=== PATIENT | male | born 2005 | race African-American/Black ===

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

== ENCOUNTER 2025-01-16 21:54 | Emergency (ER) | payer MEDICAID ==
[~2025-01-16] VITALS: Ht 182.9 cm; Wt 69.5 kg
[2025-01-16 23:50] VITALS: BP 124/79; PULSE 78; RESP 18; TEMP 98.3; O2SAT 98
[2025-01-16] MEDS ORDERED: FLUC200T PO (23:55)
[2025-01-16] MEDS ORDERED: ISOS10TA2 PO (23:55)
--- NOTE | 2025-01-16 23:55 | ED.PDOC ---
Eye-HPI HPI Comments 19 year old male presents to ER for medication refill. Patient with PMH history of achalasia reports that he ran out of his isosorbide dinitrate 10 mg that he takes TID for achalasia 3 days ago and is requesting a refill on this medication. Patient states he also has history of recurrent candidal esophagitis and is requesting a refill on fluconazole that he takes as needed for candidal esophagitis. Patient presents to ER ambulatory on arrival, in no distress and states the only symptom he is currently having is "a dry mouth". Notes he does have an appointment with his economics professor this month on January 24. Denies dysphagia, chest pain, n/v or any further symptoms/complaints Chief Complaint: Sore Throat Time Seen by MD: 22:27 Primary Care Provider: CITLALLI Aguilar Notes: Nurses Notes, Medications, Allergies Allergies: Coded Allergies: No Known Drug Allergy (Verified Allergy, Unknown, 12/25/22) Uncoded Allergies: GUILLE (Allergy, Unknown, 09/27/22) Home Meds Active Scripts Fluconazole (Diflucan) 200 Mg Tab, 1 TAB PO DAILY for 10 Days, #10 TAB 0 Refills Prov:JUSTEN MICHELLE 01/16/25 Isosorbide Dinitrate (Isosorbide Dinitrate) 10 Mg Tab, 10 MG PO TID, #30 TAB 0 Refills Prov:JUSTEN MICHELLE 01/16/25 Hydroxyzine Pamoate (Vistaril) 50 Mg Cap, 1 CAP PO QHSP PRN, #20 CAP 2 Refills Prov:MINERVA LAMB 09/27/22 Albuterol Sulfate (Albuterol Sulfate Hfa) 108 Mcg/Act Aer, 108 MCG IN TID PRN, #90 AER Prov:MINERVA LAMB 09/27/22 Methylprednisolone (Medrol Dosepak) 4 Mg Reji, 4 MG PO UD, #21 TAB UAD Prov:MINERVA LAMB 09/26/22 Information Source: Patient Mode of Arrival: Ambulatory Past Medical History PAST MEDICAL HISTORY: Anxiety Past Medical History (Other): Achalasia Esophageal candidiasis Surgical History (Other): Esophageal balloon dilation Family History Family History: Unknown Social History Smoker: Non-Smoker Alcohol: Denies ETOH Use Drugs: Denies Drug Use Lives In: Home Constitutional: denies: chills, diaphoresis, fatigue, fever, malaise, sweats, weakness, others EENTM: reports: others (As stated in HPI) Respiratory: denies: cough, hemoptysis, orthopnea, SOB at rest, shortness of breath, SOB with excertion, stridor, wheezing, others Cardiovascular: denies: chest pain, dizzy spells, diaphoresis, Dyspnea on exertion, edema, irregular heart beat, left arm pain, lightheadedness, palpitations, PND, syncope, others Gastrointestinal: denies: abdomen distended, abdominal pain, blood streaked bowels, constipated, diarrhea, dysphagia, difficulty swallowing, hematemesis, melena, nausea, poor appetite, poor fluid intake, rectal bleeding, rectal pain, vomiting, others Genitourinary: denies: burning, dysuria, flank pain, frequency, hematuria, incontinence, penile discharge, penile sore, pain, testicle pain, testicle swelling, urgency, others Neurological: denies: dizziness, fainting, headache, left sided numbness, left sided weakness, numbness, paresthesia, pre-existing deficit, right sided numbness, right sided weakness, seizure, speech problems, tingling, tremors, weakness, others Musculoskeletal: denies: back pain, gout, joint pain, joint swelling, muscle pain, muscle stiffness, neck pain, others Integumetry: denies: bruises, change in color, change in hair/nails, dryness, laceration, lesions, lumps, rash, wounds, others Allergic/Immunocompromised: denies: Difficulty Healing, Frequent Infections, Hives, Itching, others Hematologic/Lymphatic: denies: anemia, blood clots, easy bleeding, easy bruising, swollen glands, others Endocrine: denies: excessive hunger, excessive sweating, excessive thirst, excessive urination, flushing, intolerance to cold, intolerance to heat, u nexplained weight gain, unexplained weight loss, others Psychiatric: denies: anxiety, bipolar disorder, depression, hopeless, panic disorder, schizophrenia, sleepless, suicidal, others Physical Exam General Appearance: No Apparent Distress HEENT: Normal ENT Inspection, PERRL/EOMI, Pharynx Normal, TMs Normal Neck: Full Range of Motion, Non-Tender, Normal Respiratory: Chest Non-Tender, Lungs Clear, No Accessory Muscle Use, No Respiratory Distress, Normal Breath Sounds Cardiovascular: No Murmur, No Gallop, Regular Rate/Rhythm Breast Exam: Deferred Gastrointestinal: Non Tender, No Pulsatile Mass, Soft Genitalia: Deferred Pelvic: Deferred Rectal: Deferred Extremities: Normal capillary refill, Normal range of motion Neurologic: Alert, automatic screwmaker II-XII nml as Tested, No Motor Deficits, Normal Affect, Normal Mood, No Sensory Deficits Cerebellar Function: Normal Reflexes: Normal Skin: Dry, Normal Color, Warm Lymphatic: No Adenopathy Was a procedure done? Was a procedure done?: No Sedation Sedation?: No EENT DIFF Eye: N/A Other Differential Diagnosis Esophageal spasm, reflux esophagitis, pseudoachalasia X-Ray, Labs, Meds, VS Vital Signs Date Time Temp Pulse Resp B/P (MAP) Pulse Ox O2 Delivery O2 Flow Rate FiO2 01/16/25 22:10 98.3 78 18 124/79 (94) 98 98.3 Patient tolerating p.o. intake well and in no distress during ER visit/prior to discharge Advised to follow up with PCP and economics professor in 1-2 days Patient verbalized understanding and agreeable with current plan of care Advised to return to ER immediately if symptoms worsen Time of 1ST Reevaluation: 23:12 Reevaluation 1ST: N/A Patient Education/Counseling: Diagnosis, Treatment, Prognosis, Need For Follow Up Family Education/Counseling: No Family Present Departure 1 Departure Time of Disposition: 23:32 Impression: Primary Impression: Achalasia Additional Impressions: History of esophagitis Medication refill Disposition: HOME / SELF CARE / HOMELESS Condition: Stable e-Prescriptions Fluconazole (Diflucan) 200 Mg Tab 1 TAB PO DAILY for 10 Days, #10 TAB 0 Refills Prov: JUSTEN MICHELLE 01/16/25 Isosorbide Dinitrate (Isosorbide Dinitrate) 10 Mg Tab 10 MG PO TID, #30 TAB 0 Refills Prov: JUSTEN MICHELLE 01/16/25 Discharged With: Self Critical Care Note Critical Care Time?: No Stability Stability form required: No Heart Score Heart Score: Heart Score Response (Comments) Value History N/A 0 EKG N/A 0 Age N/A 0 Risk Factors N/A 0 Troponin N/A 0 Total 0 JUSTEN MICHELLE Jan 16, 2025 23:55
== END 2025-01-16 23:59 | disposition home or self-care (01) ==
LOC: ER 21:54
DX: K22.0 Achalasia of cardia (principal); F41.9 Anxiety disorder, unspecified; Z76.0 Encounter for issue of repeat prescription

== ENCOUNTER 2025-01-18 13:21 | Emergency (ER) | payer MEDICAID ==
[~2025-01-18] VITALS: Ht 182.9 cm; Wt 68.6 kg
[~2025-01-18 13:21] MED LIST changes: +FLUC200T PO; +ISOS10TA2 PO
--- NOTE | 2025-01-18 13:59 | ED.PDOC ---
SOB-HPI HPI Comments HPI: 19-year-old male presents with a chief complaint of SOB and Chest Pain. Patient mentions that he called his primary care doctors office and expressed concerns over his symptoms. Patient's PCP referred him to the ER due to his PMHx of PE x 1 year ago. Patient also reports that he has achalasia and takes medication for it. Patient mentions that currently his chest pain has subsided, but wanted to be evaluated just in case. PMHx: Anxiety, PE, distal esophageal Achalasia PSHx: None Allergies: Amy, NKDA HPI: Poor Historian. wagner: cp/sob, history of PE. Symptoms have resolved prior to my evaluation. Duration started this morning. His PCP's sent him here to make sure. REVIEW OF SYSTEMS: CONSTITUTIONAL: Denies acute: fever, diaphoresis, chills, generalized weakness. HEAD: Denies acute: headache, photophobia Eyes: Denies acute: Double vision, vision loss, eye pain, eye discharge. EARS: Denies acute: tinnitus, hearing loss, ear discharge, ear pain, THROAT: Denies acute: sore throat, swelling, difficulty swallowing , pain with swallowing, change in voice. NECK: Denies acute: neck pain, neck swelling, stiff neck. HEART: Denies acute : palpitations, LUNGS: Denies acute: wheezing, cough, hemoptysis ABDOMEN: Denies acute: abdominal pain, Nausea, Vomiting, diarrhea, melena , hematemesis, hematochezia SKIN: Denies acute: rash, redness, lesions, itchiness. EXTREMITIES: Denies acute: calf pain, numbness, tingling, weakness, denies pain in extremity. Denies acute: Low back pain. Neuro: Denies acute: focal neurological deficit, motor or sensory focal neurological deficit, tremors, seizure like activity, confusion, dizziness, change in mental status, loss of bowel or bladder function, cauda equina like symptoms. : Denies acute: dysuria, hematuria, flank pain, increase in urinary frequency. PSYCH: Denies acute: hallucination, suicidal ideation, homicidal ideation. PHYSICAL EXAM: General: ---no-----acute distress, awake and alert. Head: normocephalic, atraumatic. Neck: supple, trachea is midline, no swelling. Throat: Normal phonation. Eyes:, no erythema, no purulent discharge, no proptosis, no icterus. Heart: regular rate, regular rhythm, no significant murmur appreciated. Lungs: no apparent respiratory distress, Able to speak in full sentences. No wheezing, no rhonchi, no crackles. No stridors Clear to auscultation bilaterally. Abdomen: non tender to palpation, non distended, soft, no guarding, no rebound, + bowel sounds. Neuro: Awake, Alert, oriented to name, self, situation, follows commands GCS=15. Speech is normal. Skin: no petechia, no purpura, no cyanosis, non-pale, not jaundice. Lower extremities: --no - Pitting edema no deformity, no focal swelling, no calf TTP. Makes eye contact. moves all four extremities. Face: no apparent facial droop. Ambulating in the ED independently. No nuchal rigidity, Kernig's sign, Brudzinski's sign, no meningeal signs. ED COURSE: Chief Complaint: Shortness of Breath Time Seen by MD: 13:25 Primary Care Provider: OOA Reviewed notes: Medications, Allergies Information Source: Patient Mode of Arrival: Ambulatory Past Medical History PAST MEDICAL HISTORY: Anxiety Past Medical History (Other): PE Family History Family History: Unknown Social History Smoker: Non-Smoker Alcohol: Denies ETOH Use Drugs: Denies Drug Use Lives In: Home Was a procedure done? Was a procedure done?: No Differential Dx Differential Diagnosis: Other (Ddx include but not limitied to gastritis, musculoskeletal pain, radiculopathy, atypical chest pain, dissection, aneurysm, ACS, unstable angina, hiatal hernia, GERD, anxiety, costochondritis, PE, pneumothroax, neoplasm, cardiac ischemia, drug abuse, anemia.) X-Ray, Labs, Meds, VS Vital Signs Date Time Temp Pulse Resp B/P (MAP) Pulse Ox O2 Delivery O2 Flow Rate FiO2 01/18/25 16:00 98.2 88 20 112/77 (89) 98 98.2 01/18/25 13:42 16 97 Room Air* 0 21 01/18/25 13:35 89 01/18/25 13:28 97.6 81 16 119/71 (87) 97 97.6 Lab Test 01/18/25 16:52 01/18/25 14:50 01/18/25 14:01 Range/Units Troponin I High Sensitivity 7 4 6 </=54 ng/L White Blood Count 6.3 4.4-10.8 10^3/uL Red Blood Count 5.44 4.5-5.90 10^6/uL Hemoglobin 16.9 13.5-17.5 g/dL Hematocrit 49.1 41.0-53.0 % Mean Corpuscular Volume 90.2 80.0-100.0 fL Mean Corpuscular Hemoglobin 31.0 28.0-32.0 pg Mean Corpuscular Hemoglobin Concent 34.4 32.0-36.0 g/dL Red Cell Distribution Width 12.9 11.8-14.3 % Platelet Count 188 140-450 10^3/uL Mean Platelet Volume 8.3 6.9-10.8 fL Neutrophils (%) (Auto) 60.4 37.0-80.0 % Lymphocytes (%) (Auto) 29.4 10.0-50.0 % Monocytes (%) (Auto) 7.9 0.0-12.0 % Eosinophils (%) (Auto) 1.7 0.0-7.0 % Basophils (%) (Auto) 0.6 0.0-2.0 % Neutrophils # (Auto) 3.8 1.6-8.6 10 ^3/uL Lymphocytes # (Auto) 1.9 0.4-5.4 10 ^3/uL Monocytes # (Auto) 0.5 0-1.3 10 ^3/uL Eosinophils # (Auto) 0.1 0-0.8 10 ^3/uL Basophils # (Auto) 0 0-0.2 10 ^3/uL Nucleated Red Blood Cells 0.2 % D-Dimer, Quantitative < 0.19 0.0-0.49 mg/L FEU Sodium Level 142 136-145 mmol/L Potassium Level 4.0 3.5-5.1 mmol/L Chloride Level 106 98-107 mmol/L Carbon Dioxide Level 28 20-31 mmol/L Anion Gap 8 5-15 Blood Urea Nitrogen 9 9-23 mg/dL Creatinine 0.93 0.700-1.30 mg/dL Glomerular Filtration Rate Calc 120 >90 mL/min BUN/Creatinine Ratio 9.7 L 10.0-20.0 Serum Glucose 108 H 74-106 mg/dL Calcium Level 10.6 H 8.7-10.4 mg/dL Total Bilirubin 0.4 0.2-1.0 mg/dL Aspartate Amino Transferase (AST) 15 13-40 U/L Alanine Aminotransferase (ALT) 17 7-40 U/L Alkaline Phosphatase 76 46-116 U/L B-Type Natriuretic Peptide 4.30 0-100 pg/mL Total Protein 7.5 5.7-8.2 g/dL Albumin 4.8 3.2-4.8 g/dL Time of 1ST Reevaluation: 13:58 Reevaluation 1ST: Unchanged Time of 2ND Reevaluation: 16:58 (I DISCUSSED WITH THE PATIENT THE LAB FINDINGS. NORMAL D-DIMER. NORMAL TROPONIN. NO TACHYCARDIA. SYMPTOMS HAVE ALREADY RESOLVED PRIOR TO MY EVALUATION. THE DISCUSSED WITH THE HIM CT SCAN IMAGING OF THE CHEST TO RULE OUT PE. HE UNDERSTANDS RADIATION RISKS. AT THIS TIME HE CHOOSES NOT TO OBTAIN A CT SCAN OF THE CHEST AND WILL FOLLOW UP WITH HIS PCP AND RETURN IF NEEDED. HE UNDESCENDED TO LIMITATION OF OUR WORKUP WITHOUT A CT SCAN OF THE CHEST.) Reevaluation 2ND: Improved Patient Education/Counseling: Diagnosis, Treatment Family Education/Counseling: No Family Present Comments Patient workup has been unremarkable. However patient left before he gets his chest x-ray. I discussed CT scan imaging with the patient. He declined any imaging studies at this time. Patient states his symptoms have resolved. He thinks he might have a URI. We called the patient when he got home and instructed him to return to the emergency department to get his chest x-ray at least. Patient has said that he is not coming back and he feels fine Patient presented with the above HPI.---chest pain/dyspnea---workup was initiated. patient was found with the above mentioned diagnosis. the following medications were ordered: please refer to order lists of meds and tests obtained by myself Dr. Arce. Patient ED course and VS have been stabilized. Patient has been reassessed in the ED and remained in a stable condition. Pertinent incidental findings were discussed with the patient and/or family. Patient/family voices understanding and is agreeable with plan. Patient has been observed in the ED adequate length of time to insure improvement/stability. Escalation of care considered: Consideration of escalation to observation or admission Patient has history of PE in the past was provoked when he was hospitalized and immobilized for at least a month on a feeding tube. He followed up with Hematology afterwards. He is not on any blood thinners at this time. D-dimer is normal Patient was DISCHARGED home in a stable condition. All the reports of any imaging studies that were ordered by myself were reviewed by myself. Departure 1 Departure Time of Disposition: 16:58 Impression: Primary Impression: Chest pain Disposition: 01 HOME / SELF CARE / HOMELESS Condition: Stable Additional Instructions: ADDITIONAL INSTRUCTIONS: YOU MUST FOLLOW-UP WITH YOUR PRIMARY CARE/FAMILY DOCTOR IN 1 TO 2 DAYS. IF YOU ARE UNABLE TO SEE YOUR PRIMARY CARE/FAMILY DOCTOR, PLEASE RETURN TO OUR EMERGENCY ROOM FOR RE-ASSESSMENT AND RE-EVALUATION IN 1 TO 2 DAYS. RETURN TO THE EMERGENCY ROOM HERE IN OUR FACILITY OR TO THE NEAREST ER [place] IF YOUR SYMPTOMS CHANGE OR WORSEN. CONSULTATIONS: YOU MUST FOLLOW-UP FOR CONSULTATION SOON POSSIBLE WITH: -PULMONOLOGY AND CARDIOLOGY IN 1-2 DAYS. PLEASE CALL FOR APPOINTMENT. YOU MUST CALL THE CONSULTANTS OFFICE YOURSELF TO MAKE AN APPOINTMENT. YOU MAY NEED TO ARRANGE THAT THROUGH YOUR INSURANCE AND/OR YOUR PRIMARY/FAMILY DOCTOR. IF YOU ARE UNABLE TO SEE THE ASSISTANT PROFESSOR OF DIETETICS IN 1 TO 2 DAYS, YOU MUST RETURN TO OUR EMERGENCY ROOM (OR ANY OTHER ER OF YOUR CHOICE) FOR RE-ASSESSMENT AND RE- EVALUATION. ADEQUATE FLUID HYDRATION. Discharged With: Self Critical Care Note Critical Care Time?: No Heart Score Heart Score: Heart Score Response (Comments) Value History Slightly Suspicious 0 EKG Normal 0 Age <45 0 Risk Factors 1 or 2 risk factors 1 Troponin Normal limit 0 Total 1 I personally scribed for LISA ARCE DO ([email or web address]) on 01/18/25 at 13:59. Electronically submitted by Adelfo Schmidt ([email or web address]). I personally scribed for LISA ARCE DO ([email or web address]) on 01/18/25 at 14:20. Electronically submitted by Adelfo Schmidt ([email or web address]). LISA ARCE DO Jan 18, 2025 13:59
[2025-01-18 14:22] LABS: Basophils # (auto) 0 10 ^3/uL (0-0.2); Basophils % (auto) 0.6 % (0.0-2.0); Eosinophils # (auto) 0.1 10 ^3/uL (0-0.8); Eosinophils % (auto) 1.7 % (0.0-7.0); Hematocrit 49.1 % (41.0-53.0); Hemoglobin 16.9 g/dL (13.5-17.5); Lymphocytes # (auto) 1.9 10 ^3/uL (0.4-5.4); Lymphocytes % (auto) 29.4 % (10.0-50.0); Mean Corpuscular Hgb Conc. 34.4 g/dL (32.0-36.0); Mean Corpuscular Volume 90.2 fL (80.0-100.0); Monocytes # (auto) 0.5 10 ^3/uL (0-1.3); Monocytes % (auto) 7.9 % (0.0-12.0); Neutrophils # (auto) 3.8 10 ^3/uL (1.6-8.6); Neutrophils % (auto) 60.4 % (37.0-80.0); Nucleated Red Blood Cells % 0.2 %; Platelet Count (auto) 188 10^3/uL (140-450); Red Blood Cells 5.44 10^6/uL (4.5-5.90); Red Cell Distribution Width 12.9 % (11.8-14.3); White Blood Cell 6.3 10^3/uL (4.4-10.8)
[2025-01-18 14:39] LABS: Alanine Aminotransferase 17 U/L (7-40); Alkaline Phosphatase 76 U/L (46-116); Anion Gap 8 (5-15); Aspartate Aminotransferase 15 U/L (13-40); BUN/Creatinine Ratio 9.7 (10.0-20.0); Bilirubin, Total 0.4 mg/dL (0.2-1.0); Blood Urea Nitrogen 9 mg/dL (9-23); Carbon Dioxide 28 mmol/L (20-31); Chloride 106 mmol/L (98-107); Sodium 142 mmol/L (136-145); Total Protein 7.5 g/dL (5.7-8.2)
[2025-01-18 14:42] LABS: Albumin 4.8 g/dL (3.2-4.8); Calcium 10.6 mg/dL (8.7-10.4); Glucose 108 mg/dL (74-106)
[2025-01-18 16:00] VITALS: BP 112/77; PULSE 88; RESP 20; TEMP 98.2; O2SAT 98
--- NOTE | 2025-01-23 13:04 | ECG ---
[facility] Test Date: 2025-01-18 Test Time: 13:35:00 Pat Name: SADA SHINE Department: ER Room: Gender: M Validation Consultant: RADU : 2005 Requested By: STORM BANDA Order Number: [id number] Reading MD: Quentin Rodriguez Measurements Intervals [place] Rate: 89 P: 95 AK: 143 QRS: 35 QRSD: 90 T: 10 QT: 349 QTc: 425 Interpretive Statements Sinus rhythm Borderline ST elevation, anterior leads Electronically Signed On 01-24-2025 17:24:51 PDT by Quentin Rodriguez Please click the below link to view image of tracing.
== END 2025-01-18 18:07 | disposition home or self-care (01) ==
LOC: ER 13:29
DX: R07.9 Chest pain, unspecified (principal); R06.02 Shortness of breath
CPT/HCPCS: 36415; 80053; 83880; 84484; 85025; 85379; 93005

== ENCOUNTER 2025-03-18 06:35 | Inpatient (IN) | payer MEDICAID ==
[~2025-03-18] VITALS: Ht 182.9 cm; Wt 65.2 kg
--- NOTE | 2025-03-18 07:46 | ED.PDOC ---
General HPI Comments 19 year old male presents to the ED with a chief complaint of hematuria onset 1 day. Patient states he has began experiencing hematuria, bilateral flank pain, nausea, vomiting,fevers for the past day. This morning, fever was 102 F, took Tylenol prior to ED arrival, upon ED arrival temperature was 100.3 F. Patient states he is immunocompromised, concerned for pyelonephritis, has experienced it in the past and states symptoms are similar. Denies chest pain, shortness of breath, diarrhea, headache, dizziness. No other symptoms or modifying factors present at this time. Chief Complaint: Urinary Time Seen by MD: 07:35 Primary Care Provider: MIKA Reviewed notes: Medications, Allergies Allergies: Coded Allergies: No Known Drug Allergy (Verified Allergy, Unknown, 12/25/22) Uncoded Allergies: GUILLE (Allergy, Unknown, 09/27/22) Home Meds Active Scripts Fluconazole (Diflucan) 200 Mg Tab, 1 TAB PO DAILY for 10 Days, #10 TAB 0 Refills Prov:JUSTEN MICHELLE 01/16/25 Isosorbide Dinitrate (Isosorbide Dinitrate) 10 Mg Tab, 10 MG PO TID, #30 TAB 0 Refills Prov:JUSTEN MICHELLE 01/16/25 Hydroxyzine Pamoate (Vistaril) 50 Mg Cap, 1 CAP PO QHSP PRN, #20 CAP 2 Refills Prov:MINERVA LAMB 09/27/22 Albuterol Sulfate (Albuterol Sulfate Hfa) 108 Mcg/Act Aer, 108 MCG IN TID PRN, #90 AER Prov:MINERVA LAMB 09/27/22 Methylprednisolone (Medrol Dosepak) 4 Mg Reji, 4 MG PO UD, #21 TAB UAD Prov:MINERVA LAMB 09/26/22 Information Source: Patient Mode of Arrival: Ambulatory Severity: Moderate Timing: Days Duration: Since onset Prehospital treatment: Other (tylenol) Onset: Spontaneous Symptoms: Hematuria History of: UTI Location: (R) Flank, (L)Flank Penile discharge: None Modifying factors: None associated signs and symptoms: Fever, Nausea, Vomiting, Flank Pain, Hematuria Past Medical History PAST MEDICAL HISTORY: Anxiety Surgical History: Denies all surgeries Family History Family History: Unknown Social History Smoker: Non-Smoker Alcohol: Denies ETOH Use Drugs: Denies Drug Use Lives In: Home Constitutional: reports: fever; denies: chills, diaphoresis, fatigue, malaise, sweats, weakness, others EENTM: denies: blurred vision, double vision, ear bleeding, ear discharge, ear drainage, ear pain, ear ringing, eye pain, eye redness, hearing loss, mouth pain, mouth swelling, nasal discharge, nose bleeding, nose congestion, nose pain, photophobia, tearing, throat pain, throat swelling, voice changes, others Respiratory: denies: cough, hemoptysis, orthopnea, SOB at rest, shortness of breath, SOB with excertion, stridor, wheezing, others Cardiovascular: denies: chest pain, dizzy spells, diaphoresis, Dyspnea on exertion, edema, irregular heart beat, left arm pain, lightheadedness, palpitations, PND, syncope, others Gastrointestinal: reports: nausea, vomiting; denies: abdomen distended, abdominal pain, blood streaked bowels, constipated, diarrhea, dysphagia, difficulty swallowing, hematemesis, melena, poor appetite, poor fluid intake, rectal bleeding, rectal pain, others Genitourinary: reports: flank pain, hematuria; denies: burning, dysuria, frequency, incontinence, penile discharge, penile sore, pain, testicle pain, testicle swelling, urgency, others Neurological: denies: dizziness, fainting, headache, left sided numbness, left sided weakness, numbness, paresthesia, pre-existing deficit, right sided numbne ss, right sided weakness, seizure, speech problems, tingling, tremors, weakness, others Musculoskeletal: denies: back pain, gout, joint pain, joint swelling, muscle pain, muscle stiffness, neck pain, others Integumetry: denies: bruises, change in color, change in hair/nails, dryness, laceration, lesions, lumps, rash, wounds, others Allergic/Immunocompromised: denies: Difficulty Healing, Frequent Infections, Hives, Itching, others Hematologic/Lymphatic: denies: anemia, blood clots, easy bleeding, easy bruising, swollen glands, others Endocrine: denies: excessive hunger, excessive sweating, excessive thirst, excessive urination, flushing, intolerance to cold, intolerance to heat, unexplained weight gain, unexplained weight loss, others Psychiatric: denies: anxiety, bipolar disorder, depression, hopeless, panic disorder, schizophrenia, sleepless, suicidal, others All Other Systems: Reviewed and Negative Physical Exam General Appearance: Moderate Distress, Normal HEENT: Normal ENT Inspection, Pharynx Normal, TMs Normal Neck: Full Range of Motion, Non-Tender, Normal, Normal Inspection Respiratory: Chest Non-Tender, Lungs Clear, No Accessory Muscle Use, No Respiratory Distress, Normal Breath Sounds Cardiovascular: No Edema, No JVD, No Murmur, No Gallop, Normal Peripheral Pulses, Regular Rate/Rhythm Breast Exam: Deferred Gastrointestinal: No Organomegaly, Non Tender, No Pulsatile Mass, Normal Bowel Sounds, Soft Genitalia: Deferred Pelvic: Deferred Rectal: Deferred Extremities: No calf tenderness, Normal capillary refill, Normal inspection, Normal range of motion, Non-tender, No pedal edema Musculoskeletal : Apperance: Normal Neurologic: Alert, lead producer II-XII nml as Tested, No Motor Deficits, Normal Affect, Normal Mood, No Sensory Deficits Cerebellar Function: Normal Reflexes: Normal Skin: Dry, Normal Color, Warm Peripheral Pulses: 3+ Radial (R), 3+ Radial (L) Lymphatic: No Adenopathy Was a procedure done? Was a procedure done?: No Differential Diagnosis Kidney stone (Female): Musculoskeletal pain, Urinary obstruction, Urolithiasis X-Ray, Labs, Meds, VS Vital Signs Date Time Temp Pulse Resp B/P (MAP) Pulse Ox O2 Delivery O2 Flow Rate FiO2 03/18/25 06:42 100.3 109 20 121/74 98 100.3 Patient alert. Complaining of hematuria. Vitals stable. Answering questions. He is immunocompromise. Takes nitro for vocal cord paralysis. Possible sepsis. Establish intravenous access. Was given fluids. Explained to the patient. Continue monitoring. Time of 1ST Reevaluation: 08:05 Reevaluation 1ST: Unchanged Patient Education/Counseling: Diagnosis, Treatment, Prognosis Family Education/Counseling: No Family Present SEPSIS Sepsis Screen Date sepsis recognized/suspect: Mar 18, 2025 Time Sepsis recognized/suspect: 645 Recent Procedure: No On Antibiotic Therapy: No Respiratory Rate >20: No Heart Rate >90: Yes Temp<36 C (96.8 F) or >38.3 C: Yes SBP <90 or MAP <65 mmHG: No New Acute Mental Status Change: No Is the patient on CPAP, BIPAP,: No Physician Orders Complete Blood Count (03/18/25 07:41) Urinalysis (03/18/25 07:41) Basic Metabolic Panel (03/18/25 07:41) Sodium Chloride 0.9% (03/18/25 07:45) Blood Culture (03/18/25 07:41) Lactic Acid W/ Reflex Order (03/18/25 07:41) Vital Signs Date Time Temp Pulse Resp B/P (MAP) Pulse Ox O2 Delivery O2 Flow Rate FiO2 03/18/25 06:42 100.3 109 20 121/74 98 100.3 Departure 1 Departure Time of Disposition: 07:54 Impression: Primary Impression: Sepsis, unspecified organism Qualified Codes: A41.9 - Sepsis, unspecified organism Disposition: ADMITTED INPATIENT Admit to: Med Surg Condition: Guarded Critical Care Note Critical Care Time?: No Stability Stability form required: No Heart Score Heart Score: Heart Score Response (Comments) Value History N/A 0 EKG N/A 0 Age N/A 0 Risk Factors N/A 0 Troponin N/A 0 Total 0 I personally scribed for ERICA PIZANO MD ([email or web address]) on 03/18/25 at 07:46. Electronically submitted by Aisha Youssef ([email or web address]). ERICA PIZANO MD Mar 18, 2025 07:46
[2025-03-18] MEDS: SODIUM CHLORIDE 0.9% 1,000 ML IV ONE ×3 (08:00→10:41)
[2025-03-18 08:34] LABS: Hematocrit 47.7 % (41.0-53.0); Hemoglobin 16.4 g/dL (13.5-17.5); Mean Corpuscular Hemoglobin 30.9 pg (28.0-32.0); Mean Corpuscular Volume 90.0 fL (80.0-100.0); Nucleated Red Blood Cells % 0.1 %
[2025-03-18 08:43] LABS: Chloride 102 mmol/L (98-107); Potassium 3.9 mmol/L (3.5-5.1); Sodium 140 mmol/L (136-145)
[2025-03-18 08:44] LABS: Anion Gap 9 (5-15); Calcium 9.6 mg/dL (8.7-10.4); Carbon Dioxide 29 mmol/L (20-31)
[2025-03-18 08:49] LABS: BUN/Creatinine Ratio 10.8 (10.0-20.0); Blood Urea Nitrogen 10 mg/dL (9-23); Glucose 94 mg/dL (74-106)
[2025-03-18 09:20] LABS: Urine Protein, UAD TRACE (Negative)
[2025-03-18] MEDS ORDERED: ONDANSETRON HCL 4 MG/2 ML VIAL IV PRN (09:30)
[2025-03-18] MEDS ORDERED: ACETAMINOPHEN 325 MG TAB PO PRN (09:30)
[2025-03-18] MEDS: SODIUM CHLORIDE 0.9% 1,000 ML IV SCH (09:30)
[2025-03-18] MEDS ORDERED: ALBUTEROL SULF HFA 90MCG INH 200DOSE IN PRN (09:30)
--- NOTE | 2025-03-18 09:38 | DVHHP2 ---
History of Present Illness Reason for Visit: Bilateral flank pain likely due to urinary tract infection History of Present Illness This is a 19-year-old male with history of achalasia with chief complaint of hematuria associated with bilateral flank pain, nausea, vomiting and fever x1 day. The patient took [id number]-[id number] Tylenol due to temperature 102 at home. Upon evaluation patient states that he his immunocompromised concern for pyelonephritis as he has had frequent admissions due to this. The patient would like to be further evaluated and treated and will be admitted under hospitalist care to the medical-surgical unit. The patient denies chills, headache, dizziness, palpitation, shortness of breath, chest pain, diarrhea, constipation and other associated symptoms. No other symptoms or modifying factors present at this time. The plan has been discussed with the patient in which all questions concerns have been addressed. Past Medical History Achalasia Past Surgical History: None Family History: None Smoke: No ALCOHOL: none Drugs: None Lives: with Family Domestic Violence: Neg Review of Systems Constitutional: Yes: Fever Gastrointestinal: Nausea, Vomiting Genitourinary: Hematuria, Other (Bilateral flank pain) Allergies: Coded Allergies: No Known Drug Allergy (Verified Allergy, Unknown, 12/25/22) Uncoded Allergies: GUILLE (Allergy, Unknown, 09/27/22) Medications Current Medications Medications Dose Ordered Sig/Zak Route Start Time Stop Time Status Last Admin Dose Admin Ceftriaxone Sodium 50 ml @ 100 mls/hr DAILY@09 IV 03/19/25 09:00 UNV Sodium Chloride 1,000 ml @ 60 mls/hr [id number] IV 03/18/25 09:30 UNV Exam Vital Signs Vital Signs Date Time Temp Pulse Resp B/P (MAP) Pulse Ox O2 Delivery O2 Flow Rate FiO2 03/18/25 06:42 100.3 109 20 121/74 98 100.3 General Appearance: Alert, Oriented X3, Cooperative, No acute distress HEENT: Atraumatic, PERRLA, Mucous membr. moist/pink Respiratory: Clear to auscultation, Normal air movement Cardiovascular: Normal S1, Normal S2, No murmurs Abdominal: Normal bowel sounds, Soft, No tenderness, No hepatospenomegaly, No masses Extremities: No clubbing, No cyanosis, No edema, Normal pulses, No tenderness/swelling Skin: No rashes, No breakdown Neuro: Normal gait, Normal speech, Strength at 5/5 X4 ext, Normal tone, Sensation intact, Cranial nerves 3-12 NL Psych/Mental Status: Mental status NL Labs/Xrays Labs Test 03/18/25 08:56 03/18/25 08:20 Range/Units Urine Color Yellow Yellow Urine Clarity Clear Clear Urine pH 6.0 5.0-9.0 Urine Specific [place] 1.035 1.001-1.035 Urine Protein Trace H Negative Urine Ketones Negative Negative Urine Blood Negative Negative /uL Urine Nitrite Negative Negative Urine Bilirubin Negative Negative Urine Urobilinogen Normal Negative mg/dL Urine Leukocyte Esterase Negative Negative /uL Urine Glucose Normal Normal mg/dL White Blood Count 11.7 H 4.4-10.8 10^3/uL Red Blood Count 5.30 4.5-5.90 10^6/uL Hemoglobin 16.4 13.5-17.5 g/dL Hematocrit 47.7 41.0-53.0 % Mean Corpuscular Volume 90.0 80.0-100.0 fL Mean Corpuscular Hemoglobin 30.9 28.0-32.0 pg Mean Corpuscular Hemoglobin Concent 34.3 32.0-36.0 g/dL Red Cell Distribution Width 13.1 11.8-14.3 % Platelet Count 196 140-450 10^3/uL Mean Platelet Volume 8.4 6.9-10.8 fL Neutrophils (%) (Auto) 79.8 37.0-80.0 % Lymphocytes (%) (Auto) 11.0 10.0-50.0 % Monocytes (%) (Auto) 8.8 0.0-12.0 % Eosinophils (%) (Auto) 0.2 0.0-7.0 % Basophils (%) (Auto) 0.2 0.0-2.0 % Neutrophils # (Auto) 9.4 H 1.6-8.6 10 ^3/uL Lymphocytes # (Auto) 1.3 0.4-5.4 10 ^3/uL Monocytes # (Auto) 1.0 0-1.3 10 ^3/uL Eosinophils # (Auto) 0 0-0.8 10 ^3/uL Basophils # (Auto) 0 0-0.2 10 ^3/uL Nucleated Red Blood Cells 0.1 % Sodium Level 140 136-145 mmol/L Potassium Level 3.9 3.5-5.1 mmol/L Chloride Level 102 98-107 mmol/L Carbon Dioxide Level 29 20-31 mmol/L Anion Gap 9 5-15 Blood Urea Nitrogen 10 9-23 mg/dL Creatinine 0.93 0.700-1.30 mg/dL Glomerular Filtration Rate Calc 120 >90 mL/min BUN/Creatinine Ratio 10.8 10.0-20.0 Serum Glucose 94 74-106 mg/dL Lactic Acid Level 1.1 0.4-2.0 mmol/L Calcium Level 9.6 8.7-10.4 mg/dL SEPSIS Sepsis Screen Date sepsis recognized/suspect: Mar 18, 2025 Time Sepsis recognized/suspect: 645 Recent Procedure: No On Antibiotic Therapy: No Respiratory Rate >20: No Heart Rate >90: Yes Temp<36 C (96.8 F) or >38.3 C: Yes SBP <90 or MAP <65 mmHG: No New Acute Mental Status Change: No Is the patient on CPAP, BIPAP,: No Physician Orders Blood Culture (03/18/25 07:41) Sodium Chloride 0.9% (03/18/25 08:00) Ceftriaxone Ivpb Rocephin (03/19/25 09:00) Admit (03/18/25 09:27) 2 Gm Sodium Diet (03/18/25 Breakfast) 0.9% Ns 1000 Ml (03/18/25 09:30) Ondansetron Hcl (Zofran) (03/18/25 09:30) Complete Blood Count (03/19/25 04:00) Comprehensive Metabolic Panel (03/19/25 04:00) Condition: Fair (03/18/25 09:27) Acetaminophen Tablet (Tylenol Tablet) (03/18/25 09:30) BRP (03/18/25 09:27) Urine Bacterial Culture (03/18/25 09:27) Ketorolac Injection (Toradol Injection) (03/18/25 09:30) Vital Signs Date Time Temp Pulse Resp B/P (MAP) Pulse Ox O2 Delivery O2 Flow Rate FiO2 03/18/25 06:42 100.3 109 20 121/74 98 100.3 Laboratory Tests Test 03/18/25 08:20 Lactic Acid Level 1.1 mmol/L (0.4-2.0) White Blood Count 11.7 10^3/uL (4.4-10.8) H Assessment/Plan Assessment/Plan Bilateral flank pain rule out urinary tract infection--patient with chief complaint of hematuria associated with bilateral flank pain, nausea, vomiting a nd fever x1 day Temperature 102 at home took qsiy-tgy-jbfrowj Tylenol then repeat temperature 100.3 in the ER Patient reports history of achalasia and states that he is immunocompromised History of frequent UTI Patient insisting on being admitted Patient received IV hydration, Rocephin and Flagyl in the ER Patient is ambulatory and alert oriented x4 upon evaluation Admit to medical-surgical unit Reviewed CBC shows hemoglobin 16.9/49.1 BMP which is normal Urinalysis normal IV hydration IV Toradol x1 for pain Antipyretic as needed Anti nausea medication as needed Reconcile home medication DVT prophylaxis not indicated patient ambulatory PUD prophylaxis not indicated no history of GERD Labs in a.m. Discussed plan of care with the patient in which all questions concerns have been addressed Plan discussed with: Patient My Orders Orders - JARRETT PAINTER Procedure Category Date Status Time Ceftriaxone Ivpb PHA 03/19/25 Transmitted Rocephin 09:00 Admit ADMIT 03/18/25 Transmitted 09:27 2 Gm Sodium Diet DIET 03/18/25 Transmitted Breakfast 0.9% Ns 1000 Ml PHA 03/18/25 Transmitted 09:30 Ondansetron Hcl PHA 03/18/25 Transmitted (Zofran) 09:30 Complete Blood Count LAB 03/19/25 Verified 04:00 Comprehensive LAB 03/19/25 Verified Metabolic Panel 04:00 Condition: Fair NAYELI 03/18/25 Transmitted 09:27 Acetaminophen Tablet PHA 03/18/25 Transmitted (Tylenol Tablet) 09:30 BRP NAYELI 03/18/25 Transmitted 09:27 Urine Bacterial CLARK 03/18/25 Transmitted Culture 09:27 Ketorolac Injection PHA 03/18/25 Transmitted (Toradol Injection) 09:30 Date of Service: Mar 18, 2025 Billing Provider: JARRETT PAINTER Common Visit Codes: [id number] INP/OBS CARE (HIGH) JARRETT PAINTER Mar 18, 2025 09:38
[2025-03-18 10:27] VITALS: BP 121/74; PULSE 109; RESP 20; TEMP 98.6; O2SAT 98
[2025-03-18] MEDS: cefTRIAXone 1GM/50ML D5W 50 ML IV ONE (10:41)
[2025-03-18] MEDS: KETOROLAC TROMETH 30 MG/ML 1ML VIAL IV ONE (10:41)
[2025-03-18] MEDS: ISOSORBIDE DINITRATE 10 MG TAB PO SCH (14:00)
[2025-03-18 19:45] VITALS: BP 113/69; PULSE 77; RESP 16; TEMP 97.9; O2SAT 98
[2025-03-18] MEDS ORDERED: NITR1SPR TL (20:36)
[2025-03-18 22:12] VITALS: BP 115/84; PULSE 72; RESP 20; TEMP 98.6; O2SAT 99
[2025-03-19 01:00] VITALS: BP 118/86; PULSE 68; RESP 18; TEMP 98.2; O2SAT 98
[2025-03-19 05:00] VITALS: BP 120/80; PULSE 72; RESP 18; TEMP 98; O2SAT 99
[2025-03-19 05:47] LABS: Hematocrit 42.4 % (41.0-53.0); Hemoglobin 14.6 g/dL (13.5-17.5); Mean Corpuscular Hemoglobin 30.8 pg (28.0-32.0); Mean Corpuscular Volume 89.6 fL (80.0-100.0); Nucleated Red Blood Cells % 0.1 %
[2025-03-19 06:08] LABS: Alanine Aminotransferase 15 U/L (7-40); Albumin 4.0 g/dL (3.2-4.8); Alkaline Phosphatase 58 U/L (46-116); Anion Gap 10 (5-15); BUN/Creatinine Ratio 10.8 (10.0-20.0); Calcium 9.0 mg/dL (8.7-10.4); Carbon Dioxide 27 mmol/L (20-31); Chloride 106 mmol/L (98-107); Glucose 90 mg/dL (74-106); Sodium 143 mmol/L (136-145); Total Protein 6.2 g/dL (5.7-8.2)
[2025-03-19 06:09] LABS: Bilirubin, Total 0.3 mg/dL (0.2-1.0); Blood Urea Nitrogen 7 mg/dL (9-23); Potassium 3.2 mmol/L (3.5-5.1)
[2025-03-19 08:41] VITALS: BP 112/73; PULSE 66; RESP 16; TEMP 98; O2SAT 100
[2025-03-19] MEDS: cefTRIAXone 1GM/50ML D5W 50 ML IV SCH (09:30)
[2025-03-19 12:32] VITALS: BP 113/78; PULSE 74; RESP 17; TEMP 98.3; O2SAT 99
[2025-03-19] MEDS: NITROGLYCERIN 0.4MG/DOSE SPRAY 4.9GM TL SCH (16:26)
[2025-03-19 16:53] VITALS: BP 119/68; PULSE 77; RESP 16; TEMP 98.3; O2SAT 100
--- NOTE | 2025-03-19 17:31 | DVHPN2 ---
Assessment/Plan Assessment/Plan progress note 19 M with achalasia (per pt was from autoimmune but the doctors doesnt know why, also planned for [facility]? in [place]?) and hx of PE admitted for UTI. Patient has clear urine. culture show <10k CFU. was empirically covered with ceftriaxone. physical exam AOX4 OBDULIO MMM clear breath sounds S1 S2 rrr abdomen softnontender no CVA tenderness no LE edema labs ekg imaging reviewed assessment and plan doubt UTI achalasia stones? hx of PE during hospitalization not on AC ctap noncon fluid empiric ceftriaxone nitroglycerin pre meal diet liquid dvt ppx lovenox full code Plan discussed with: Patient My Orders Orders - JEANNA GARDINER MD Procedure Category Date Status Time Nitroglycerin [place] PHA 03/19/25 In Process (Nitrolingual Pumpsp 17:00 Urinalysis LAB 03/19/25 Logged 12:31 Date of Service: Mar 19, 2025 Billing Provider: JEANNA GARDINER MD Common Visit Codes: [id number] INP/OBS CARE(HIGH) JEANNA GARDINER MD Mar 19, 2025 17:31
[2025-03-19 19:43] LABS: Urine Protein, UAD Negative (Negative)
[2025-03-19 21:00] VITALS: BP 123/70; PULSE 79; RESP 17; TEMP 97.8; O2SAT 100
[2025-03-19] MEDS: ACETAMINOPHEN 650 mg PER 20.3 mL UD PO ONE (23:56)
[2025-03-20 01:00] VITALS: BP 116/70; PULSE 73; RESP 18; TEMP 97.8; O2SAT 99
[2025-03-20 05:00] VITALS: BP 135/84; PULSE 78; RESP 17; TEMP 98.4; O2SAT 100
[2025-03-20] MEDS: ENOXAPARIN SOD 40 MG/0.4 ML SYRINGE SC SCH (09:08)
[2025-03-20 09:13] VITALS: BP 132/98; PULSE 74; RESP 16; TEMP 98; O2SAT 100
[2025-03-20 13:33] VITALS: BP_SYST 105; BP_SYST 116; BP_DIAS 64; BP_DIAS 82; PULSE 61; RESP 18; RESP 20; TEMP 97.6; TEMP 98.2; O2SAT 100; O2SAT 98
--- NOTE | 2025-03-20 15:34 | DVHPN2 ---
Assessment/Plan Assessment/Plan progress note 19 M with achalasia (per pt was from autoimmune but the doctors doesnt know why, also planned for [facility]? in [place]?) and hx of PE admitted for UTI. Patient has clear urine. culture show <10k CFU. was empirically covered with ceftriaxone. seen today. UA and cutllrue negative. getting CTAP for stone eval. no cva tenderness. physical exam AOX4 OBDULIO MMM clear breath sounds S1 S2 rrr abdomen softnontender no CVA tenderness no LE edema labs ekg imaging reviewed assessment and plan doubt UTI achalasia stones? hx of PE during hospitalization not on AC ctap noncon fluid empiric ceftriaxone dc nitroglycerin pre meal diet liquid dvt ppx lovenox full code Plan discussed with: Patient My Orders Orders - JEANNA GARDINER MD Procedure Category Date Status Time Enoxaparin Sodium PHA 03/20/25 In Process (Lovenox) 10:00 Ct Ab Pel Wo Con-No CT 03/20/25 Transmitted Oral Or Iv 15:33 Date of Service: Mar 20, 2025 Billing Provider: JEANNA GARDINER MD Common Visit Codes: [id number] INP/OBS CARE(MOD) JEANNA GARDINER MD Mar 20, 2025 15:34
--- NOTE | 2025-03-20 16:28 | DVH ---
Exam: CT CT AB PEL WO CON-NO ORAL OR IV History: r/o stone Comparison Study: None Technique: Multidetector spiral CT of the abdomen and pelvis was performed from lung bases to pubic symphysis. Imaging was performed without IV contrast. Axial, coronal and sagittal multiplanar reform ats were obtained from the axial data set by the technologist. Radiation dose : Abdomen/Pelvis: CTDIvol 5 mGy, DLP 283 mGy*cm. Findings: Evaluation of solid organs is limited due to lack of intravenous contrast use. Lung Bases: No acute or significant lung base finding. Normal heart size. No pleural or pericardial effusion. Liver: The liver is normal in size. No focal lesions. Gallbladder and biliary Tree: Unremarkable Spleen: Unremarkable Pancreas: The pancreas is grossly normal in appearance. Adrenal Glands: Unremarkable Kidneys: Kidneys are grossly normal without calculi or hydronephrosis. Bladder: Grossly unremarkable for degree of distention. Bowel: The stomach is grossly normal in appearance. Small bowel and colon are normal in caliber and d istribution. Normal appendix is visualized in the right lower quadrant without findings of appendicit is. Ascites: Absent Lymphadenopathy: Subcentimeter mesenteric lymph nodes. Abdominal wall and Mesentery: Unremarkable. Vasculature: The visualized abdominal aorta is normal in size and caliber. Evaluation of abdominal a nd pelvic vessels is limited due to lack of intravenous contrast. Pelvic Organs: Unremarkable Musculoskeletal: No aggressive focal bony lesions, acute fractures or dislocation. IMPRESSION: 1. No acute abdominal or pelvic findings. No hydronephrosis or nephrolithiasis. Subcentimeter mesent tessie lymph nodes are nonspecific. Clinical correlation and continued follow-up is recommended. Radiation optimization: All CT scans at this facility use at least one of these dose optimization jeni hniques: Automated exposure control mA and/or kV adjustment per patient size (includes targeted exams where dose is matched to clinical indication) or iterative reconstruction. HS:Y
[2025-03-20 21:00] VITALS: BP 111/63; PULSE 74; RESP 18; TEMP 97.7; O2SAT 100
[2025-03-21 05:00] VITALS: BP 111/61; PULSE 73; RESP 18; TEMP 97; O2SAT 95
[2025-03-21 09:00] VITALS: BP 108/71; PULSE 60; RESP 17; TEMP 98.4; O2SAT 99
[2025-03-21 12:52] VITALS: BP 105/65; PULSE 64; RESP 17; TEMP 97.5; O2SAT 99
--- NOTE | 2025-03-21 14:43 | DVHDS2 ---
Discharge Summary Date of Admission Mar 18, 2025 at 09:27 Date of Discharge: Mar 21, 2025 Labs/Diagnostic Data: Laboratory Results Test 03/19/25 17:58 03/19/25 04:50 03/18/25 08:20 Urine Color Colorless (Yellow) Urine Clarity Clear (Clear) Urine pH 7.5 (5.0-9.0) Urine Specific [place] 1.007 (1.001-1.035) Urine Protein Negative (Negative) Urine Ketones Negative (Negative) Urine Blood Negative /uL (Negative) Urine Nitrite Negative (Negative) Urine Bilirubin Negative (Negative) Urine Urobilinogen Normal mg/dL (Negative) Urine Leukocyte Esterase Negative /uL (Negative) Urine Glucose Normal mg/dL (Normal) White Blood Count 8.4 10^3/uL (4.4-10.8) Red Blood Count 4.73 10^6/uL (4.5-5.90) Hemoglobin 14.6 g/dL (13.5-17.5) Hematocrit 42.4 % (41.0-53.0) Mean Corpuscular Volume 89.6 fL (80.0-100.0) Mean Corpuscular Hemoglobin 30.8 pg (28.0-32.0) Mean Corpuscular Hemoglobin Concent 34.4 g/dL (32.0-36.0) Red Cell Distribution Width 13.2 % (11.8-14.3) Platelet Count 188 10^3/uL (140-450) Mean Platelet Volume 8.8 fL (6.9-10.8) Neutrophils (%) (Auto) 60.6 % (37.0-80.0) Lymphocytes (%) (Auto) 26.5 % (10.0-50.0) Monocytes (%) (Auto) 11.1 % (0.0-12.0) Eosinophils (%) (Auto) 1.6 % (0.0-7.0) Basophils (%) (Auto) 0.2 % (0.0-2.0) Neutrophils # (Auto) 5.1 10 ^3/uL (1.6-8.6) Lymphocytes # (Auto) 2.2 10 ^3/uL (0.4-5.4) Monocytes # (Auto) 0.9 10 ^3/uL (0-1.3) Eosinophils # (Auto) 0.1 10 ^3/uL (0-0.8) Basophils # (Auto) 0 10 ^3/uL (0-0.2) Nucleated Red Blood Cells 0.1 % Sodium Level 143 mmol/L (136-145) Potassium Level 3.2 mmol/L (3.5-5.1) Chloride Level 106 mmol/L (98-107) Carbon Dioxide Level 27 mmol/L (20-31) Anion Gap 10 (5-15) Blood Urea Nitrogen 7 mg/dL (9-23) Creatinine 0.65 mg/dL (0.700-1.30) Glomerular Filtration Rate Calc 137 mL/min (>90) BUN/Creatinine Ratio 10.8 (10.0-20.0) Serum Glucose 90 mg/dL (74-106) Calcium Level 9.0 mg/dL (8.7-10.4) Total Bilirubin 0.3 mg/dL (0.2-1.0) Aspartate Amino Transferase (AST) 16 U/L (13-40) Alanine Aminotransferase (ALT) 15 U/L (7-40) Alkaline Phosphatase 58 U/L (46-116) Total Protein 6.2 g/dL (5.7-8.2) Albumin 4.0 g/dL (3.2-4.8) Lactic Acid Level 1.1 mmol/L (0.4-2.0) Other Laboratory Tests 03/19/25 04:50 Brief Hx & Hospital Course: 19 M with achalasia (per pt was from autoimmune but the doctors doesnt know why, also planned for [facility]? in [place]?) and hx of PE admitted for UTI. Patient has clear urine. culture show <10k CFU. was empirically covered with ceftriaxone. UA and cutllrue negative. getting CTAP no stone. likely spasm, improved. stable to dc Condition at Discharge: Good Final Diagnosis/Problems List back pain likely severe back spasms no UTI, empirically treated achalasia no stones hx of PE during hospitalization not on AC Discharge Disposition: Home Discharge Instruct/Medications Diet: See Comment Diet comment: liq Activity: No Restrictions, As Tolerated Miscellaneous Medications Nitroglycerin (Nitroglycerin Lingual), 0.4 MG TL, (Reported) Discharge Statement: "Patient was advised to return to the ER or call 911 if any headaches, dizziness, shortness of breath, chest pain, abdominal pain, bleeding, fevers, or worsening of medical condition. Patient was counseled about treatment plan, medications, possible side effects, patientverbalized understanding. All questions were answered to the best of my ability. This discharge took greater then 30 minutes in planning, reviewing documentation, counseling the patient, and discussing with other team members." ASSESSMENT ASSESSMENT Assessment back pain likely spasms? Date of Service: Mar 21, 2025 Billing Provider: JEANNA GARDINER MD Common Visit Codes: [id number]/OBS DISCH DAY >30min JEANNA GARDINER MD Mar 21, 2025 14:43
[2025-03-21 15:41] VITALS: BP 122/70; PULSE 64; RESP 17; TEMP 97.5; O2SAT 99
== END 2025-03-21 16:15 | disposition home or self-care (01) | DRG 347 ==
LOC: ER 06:35 → OVERFLOW 09:27 → WEST WING 22:12
PROVIDERS: ADMIT Student in an Organized Health Care Education/Training Program; ATTEND Student in an Organized Health Care Education/Training Program
DX: M62.830 Muscle spasm of back (principal); D84.89 Other immunodeficiencies; K22.0 Achalasia of cardia; M62.838 Other muscle spasm; R31.9 Hematuria, unspecified; F41.9 Anxiety disorder, unspecified; Z79.899 Other long term (current) drug therapy; Z87.440 Personal history of urinary (tract) infections; Z86.711 Personal history of pulmonary embolism
CPT/HCPCS: 36415; 74176; 80048; 80053; 81003; 83605; 85025; 87040; 87086; G0378; J1885; J3490